=== PATIENT | female | born 2000 | race Caucasian/White ===

== ENCOUNTER 2021-03-30 23:28 | Inpatient (IN) | payer SELFPAY ==
[~2021-03-30] VITALS: Ht 167.6 cm; Wt 61.2 kg
[2021-03-31 00:02] LABS: HEMOGLOBIN 14.4 gm/dl (12.3-15.3); RED BLOOD COUNT 4.5 M/UL (4.00-5.10); WHITE BLOOD COUNT 8.2 K/UL (4.5-11.0)
[2021-03-31 00:20] LABS: BUN/CREATININE RATIO 24 (0-10)
--- NOTE | 2021-03-31 05:28 | NUR ---
Patient upset/crying/yelling states she does not know where her child is, states the child does not know the family members and she wants to know where her child is, got patient calmed down and notified her that we will call the police to have a welfare check completed, police called and states the baby is at [address] and is in the bed asleep, notified patient
[2021-03-31 05:50] LABS: BUN/CREATININE RATIO 23 (0-10)
[2021-03-31] MEDS ORDERED: LANTUS SOL100 UNIT/1 SC (07:53)
[2021-03-31] MEDS ORDERED: HUMALOG100 UNIT/3 SC (07:54)
[2021-03-31 10:40] LABS: BUN/CREATININE RATIO 21 (0-10)
[2021-03-31 15:45] LABS: BUN/CREATININE RATIO 22 (0-10)
[2021-03-31] MEDS ORDERED: ZOFRAN 4 MG TAB4 MG PO (17:13)
== END 2021-03-31 17:33 | disposition home or self-care (01) | DRG 639 ==
LOC: ER1 23:28 → CDU 03-31 00:42 → CCU 03-31 00:42
PROVIDERS: Internal Medicine; Physician Assistant Medical; ADMIT Internal Medicine
DX: E10.10 Type 1 diabetes mellitus with ketoacidosis without coma (principal); E10.65 Type 1 diabetes mellitus with hyperglycemia; Z20.822 Contact with and (suspected) exposure to COVID-19; F10.129 Alcohol abuse with intoxication, unspecified; F17.210 Nicotine dependence, cigarettes, uncomplicated; Z79.4 Long term (current) use of insulin; Z71.6 Tobacco abuse counseling; Z23 Encounter for immunization
CPT/HCPCS: 36415; 71045; 80048; 80053; 80307; 81001; 82009; 82803; 82962; 83735; 84100; 84703; 85025; 90686; 93005; 99285; G0008; G0480; J2405; J3480; U0002